=== PATIENT | female | born 1980 | race Caucasian/White ===

== ENCOUNTER 2016-12-27 00:10 | Inpatient (IN) | payer OTHER ==
[2016-12-27 00:28] VITALS: BP 138/94
[2016-12-27] MEDS: HYDROmorphone 1 mg/mL 1mL Syr IVP PRN ×3 (01:16→19:55)
[2016-12-27] MEDS ORDERED: Piperacillin Sodium/Tazobact 3.375 gm Vial IV ONE (01:29)
[2016-12-27 05:44] LABS: % BASOPHILS 0.4 % (0.0-2.0); % EOSINOPHILS 0.2 % (0.0-5.0); % MONOCYTES 9.8 % (2.0-10.0); % NEUTROPHILS 76.6 % (40.0-80.0); HEMATOCRIT 37.4 % (35.0-45.0); HEMOGLOBIN 12.9 gm/dL (11.7-15.5); MEAN CELL VOLUME 83.1 fl (81-100); MEAN CORPUSCULAR HEMOGLOBIN 28.6 pg (27.0-31.0); MEAN CORPUSCULAR HGB CONC 34.4 pg (28.0-36.0); MEAN PLATELET VOLUME 9.9 fl; NEUTROPHILE ABSOLUTE 8.6 Th/cmm (1.8-8.0); PLATELET COUNT 201 Th/cmm (150-400); RED CELL DISTRIBUTION WIDTH 14.3 % (11.5-20.0); WHITE BLOOD COUNT 11.2 Th/cmm (4.8-10.8)
[2016-12-27 06:18] LABS: ANION GAP 7.6 (7.0-16.0); BUN - UREA NITROGEN 11 mg/dL (7-25); BUN/CREATININE RATIO 15.7; CALCIUM SERUM 8.7 mg/dL (8.6-10.3); CARBON DIOXIDE 24.7 mEq/L (21.0-31.0); CHLORIDE 103 mEq/L (98-107); CREATININE - SERUM 0.7 mg/dL (0.6-1.2); GLUCOSE 144 mg/dL (70-105); POTASSIUM SERUM 3.3 mEq/L (3.5-5.1); SODIUM SERUM 132 mEq/L (136-145)
--- NOTE | 2016-12-27 10:59 | General Progress Note ---
Subjective - Review of Systems Service Date: 12/27/16 Events since last encounter: had MAURICE in February 2016 for stage 111 endometrial CA and post op radiation lower abdominal pain with fever for [address] scan at [facility] in pelvis US being done no labs available PE tender lower abdomen check tumor markers Objective - Results Result Diagrams: 12/27/16 05:14 12/27/16 05:14 Recent Labs: Laboratory Last Values WBC 11.2 Th/cmm (4.8-10.8) H 12/27/16 05:14 RBC 4.50 Mil/cmm (3.80-5.10) 12/27/16 05:14 Hgb 12.9 gm/dL (11.7-15.5) 12/27/16 05:14 Hct 37.4 % (35.0-45.0) 12/27/16 05:14 MCV 83.1 fl (81-100) 12/27/16 05:14 MCH 28.6 pg (27.0-31.0) 12/27/16 05:14 MCHC Differential 34.4 pg (28.0-36.0) 12/27/16 05:14 RDW 14.3 % (11.5-20.0) 12/27/16 05:14 Plt Count 201 Th/cmm (150-400) 12/27/16 05:14 MPV 9.9 fl 12/27/16 05:14 Neutrophils % 76.6 % (40.0-80.0) 12/27/16 05:14 Lymphocytes % 13.0 % (20.0-50.0) L 12/27/16 05:14 Monocytes % 9.8 % (2.0-10.0) 12/27/16 05:14 Eosinophils % 0.2 % (0.0-5.0) 12/27/16 05:14 Basophils % 0.4 % (0.0-2.0) 12/27/16 05:14 Sodium 132 mEq/L (136-145) L 12/27/16 05:14 Potassium 3.3 mEq/L (3.5-5.1) L 12/27/16 05:14 Chloride 103 mEq/L (98-107) 12/27/16 05:14 Carbon Dioxide 24.7 mEq/L (21.0-31.0) 12/27/16 05:14 Anion Gap 7.6 (7.0-16.0) 12/27/16 05:14 BUN 11 mg/dL (7-25) 12/27/16 05:14 Creatinine 0.7 mg/dL (0.6-1.2) 12/27/16 05:14 Est GFR ( Amer) > 60.0 ml/min (>90) 12/27/16 05:14 Est GFR (Non-Af Amer) > 60.0 ml/min 12/27/16 05:14 BUN/Creatinine Ratio 15.7 12/27/16 05:14 Glucose 144 mg/dL (70-105) H 12/27/16 05:14 POC Glucose 138 MG/DL (70 - 105) H 12/27/16 01:15 Calcium 8.7 mg/dL (8.6-10.3) 12/27/16 05:14 - Physical Exam Vitals and I&O: Vital Signs Temp 98.3 F 12/27/16 08:00 Pulse 106 12/27/16 08:00 Resp 17 12/27/16 08:00 BP 139/72 12/27/16 08:00 Pulse Ox 100 12/27/16 08:00 Intake & Output 12/26/16 12/27/16 12/27/16 18:59 06:59 18:59 Intake Total 380 Balance 380 Weight (lbs) 102.058 kg 102.058 kg Intake: Oral 380 Other: # Voids 0 # Bowel Movements 0 Stool Characteristics Soft Active Medications: Current Medications Acetaminophen (Tylenol) 650 mg PO Q6H PRN PRN Reason: Pain or Temperature above 101 Stop: 02/25/17 00:53 Hydromorphone HCl (Dilaudid) 1 mg IVP Q6HR PRN PRN Reason: Moderate Pain Stop: 02/25/17 00:54 Last Admin: 12/27/16 09:30 Dose: 1 mg Piperacillin Sod/Tazobactam (Sod 3.375 gm/ Sodium Chloride) 50 mls @ 100 mls/ hr IV Q8HR [facility] Stop: 02/25/17 05:59 Last Admin: 12/27/16 06:26 Dose: 100 mls/hr Vancomycin HCl 1 gm/ Sodium (Chloride) 250 mls @ 165 mls/hr IV Q8HR@0100,0900, 1700 [facility] Stop: 02/25/17 08:59 Last Admin: 12/27/16 09:08 Dose: 165 mls/hr Miscellaneous (Vancomycin Iv Per Pharmacy) 1 rita POLO PRN PRN PRN Reason: PROTOCOL Stop: 02/25/17 00:50
[2016-12-27] MEDS ORDERED: Potassium Chloride 20 mEq ER Tab PO SCH (11:45)
--- NOTE | 2016-12-27 13:23 | History & Physical ---
ADMIT DATE: 12/27/2016 CHIEF COMPLAINT: pain. HISTORY OF PRESENT ILLNESS: This is the case of a 36-year-old female who went to [facility] ER secondary to abdominal pain. The patient referred there a few days ago it was started going pelvic abdominal pain, pain increased and she had fever, reason why she went to ER for evaluation and treatment. The patient was evaluated in [facility] ER. CT was done, it was found that the patient has possible abscess in the left side of lower abdomen, reason why the patient was transferred to this hospital to continue treatment. PAST MEDICAL HISTORY: The patient has past medical history of endometrial hyperplasia with atypia, endometrial cancer. The patient has history of anemia and obesity. In May the patient had left abdominal pelvic abscess with drainage and received treatment at the hospital. PAST SURGICAL HISTORY: The patient had hysterectomy secondary to endometrial hyperplasia. SOCIAL HISTORY: The patient lives at home with family members. She denied alcohol or drug use. MEDICATIONS: Reviewed. REVIEW OF SYSTEMS: LUNGS: The patient denies shortness of breath. HEART: The patient denies chest pain. ABDOMEN: The patient referred left lower abdominal pain. EXTREMITIES: Unremarkable. NEUROLOGICAL: Unremarkable. PHYSICAL EXAMINATION: GENERAL: Does reveal regular fairly nourished and developed white female, awake, alert and complaining of abdominal pain. HEENT: Head is normocephalic and atraumatic. Eyes: Pupils reactive to light. Nose: No evidence of nasal obstruction. Ears: No evidence of any discharge. Mouth: Fairly . LUNGS: Bilateral air entry. No wheezing, no crackles. HEART: Regular and rhythmic. ABDOMEN: Soft and tender in the left lower side of abdomen. Bowel sound is present. EXTREMITIES: No edema. NEUROLOGICAL: The patient is awake, alert. Nerves 2-12 grossly intact. IMPRESSION: 1. Pelvic abscess. 2. Obesity. PLAN: 1. The patient will be admitted in the Medical Surgical floor. 2. Continue with home medications. 3. Regular diet. 4. Vancomycin. 5. Zosyn IV. 6. Dilaudid for pain control. 7. Consult with Dr. Huynh, surgeon. 8. Consult with Dr. Palacios, SHANNON. JOB# [id number]
--- NOTE | 2016-12-28 03:51 | Admit Criteria Form ---
Admit Criteria Forms - Admit Criteria Diagnosis: ABDOMINAL PAIN Clinical Indications for Admission to Inpatient Care (Place 'X' for any and all applicable criteria): Admission is indicated for ANY ONE of the following(1)(2)(3)(4)(5): [X]I. Inpatient admission required rather than observation care (Also use Abdominal Pain: Observation Care, as appropriate) because of ANY ONE of the following: [ ]a) Severe pain requiring acute inpatient management [X]b) Identification of etiology/finding that requires inpatient care (eg, aortic dissection, free air) [ ]c) Absent bowel sounds with complete ileus(6) [ ]d) Suspected toxic megacolon [ ]e) Severe electrolyte abnormalities requiring inpatient care [ ]f) High fever or infection requiring inpatient admission as indicated by ANY ONE of following(7)(8): [ ] i) Appropriate outpatient or observational care antimicrobial treatment unavailable, not effective, or not feasible [ ] ii) Documented bacteremia [ ] iii) Temperature > 104.9 degrees F (oral) [ ] iv) T >103.1 F (oral) or < 96.8 F(rectal) that does not respond to all emergency treatment measures [ ]g) Signs of intestinal obstruction [B] [ ]h) Hemodynamic instability [ ]i) IV fluid to replace significant ongoing losses (greater than 3 L/m2 per day) (12)(13) [ ]j) Percutaneous or open drainage (eg, abscess, biliary tract ) procedures [ ]k) Parenteral nutrition regimen that must be implemented on inpatient basis [ ]l) Other condition,treatment or monitoring requiring inpatient admission. [ ]II. Peritoneal signs present [ ]III. Surgery needed that cannot be performed on an ambulatory basis. [ ]IV. Evaluation requires patient to not eat or drink for extended period ( eg, more than 24 hours). [ ]V. Contraindications and/or Inappropriate clinical situations for Observational Care in patients with abdominal pain, when ANY ONE of the following is required: [ ]a) Thorough evaluation is required to prevent catastrophic events due to delays in diagnosing (e.g.Mesenteric ischemia) 1,3 [ ]b) Patient with severe pathology or with chronic symptoms unlikely to improve in the ED stay (3) [ ]. General contraindications and/or Inappropriate clinical situations for Observational Care in patients with abdominal pain, when ANY ONE of the following is required: [ ]a) Prediction of prolongation of LOS based on ANY ONE of the following may be considered as a contraindication for observational care 2, 3, 4, 5, 6, 7, 8, 9, 10, 11 [ ]i) Age > 65 yrs. [ ]ii) Patient arriving by ambulance [ ]iii) Patient with high acuity [ ]iv) Patient requiring vital sign monitoring [ ]v) Patient on IV medication [ ]b) Systolic blood pressures 180mmHg 3,12 [ ]c) Patient with altered mental status including delirium and other alteration of consciousness, (3) [ ]d) Patient whose discharge disposition will be to a [facility] home or rehabilitation home should not be managed in Emergency Department Observation Unit. CMS rule requires 3 days hospital stay before such placement.3,13 [ ]e) Patient with failure to thrive due to broad array of etiologies 3,16,17 [ ]f) Inability to ambulate 3,14 Extended stay beyond goal length of stay may be needed for(2)(3): [ ]a) Persistent abdominal pain with suspected intra-abdominal process [ ]b) Diagnosed condition requiring continued stay (e.g., pancreatitis, complicated diverticulitis) [ ]c) Surgery (e.g., colectomy) The original [employer] content created by [employer] has been revised. The portions of the content which have been revised are identified through the use of italic text or in bold, and [facility] has neither reviewed nor approved the modified material.All other unmodified content is copyright [facility]. Please see references footnoted in the original [facility] edition 2016
[2016-12-28 05:50] LABS: % BASOPHILS 0.4 % (0.0-2.0); % EOSINOPHILS 0.3 % (0.0-5.0); % MONOCYTES 7.7 % (2.0-10.0); % NEUTROPHILS 81.6 % (40.0-80.0); HEMATOCRIT 39.1 % (35.0-45.0); HEMOGLOBIN 13.2 gm/dL (11.7-15.5); MEAN CELL VOLUME 84.9 fl (81-100); MEAN CORPUSCULAR HEMOGLOBIN 28.7 pg (27.0-31.0); MEAN CORPUSCULAR HGB CONC 33.8 pg (28.0-36.0); MEAN PLATELET VOLUME 9.9 fl; NEUTROPHILE ABSOLUTE 9.6 Th/cmm (1.8-8.0); PLATELET COUNT 173 Th/cmm (150-400); RED CELL DISTRIBUTION WIDTH 14.4 % (11.5-20.0); WHITE BLOOD COUNT 11.7 Th/cmm (4.8-10.8)
[2016-12-28 06:03] LABS: ALKALINE PHOSPHATASE 124 U/L (34-104); ANION GAP 9.2 (7.0-16.0); BILIRUBIN,TOTAL 1.7 mg/dL (0.3-1.0); BUN - UREA NITROGEN 7 mg/dL (7-25); CALCIUM SERUM 9.4 mg/dL (8.6-10.3); CARBON DIOXIDE 26.2 mEq/L (21.0-31.0); CHLORIDE 102 mEq/L (98-107); CREATININE - SERUM 0.7 mg/dL (0.6-1.2); GLUCOSE 146 mg/dL (70-105); POTASSIUM SERUM 3.4 mEq/L (3.5-5.1); SGOT 104 U/L (13-39); SGPT/ALT 123 U/L (7-52); SODIUM SERUM 134 mEq/L (136-145)
[2016-12-28] MEDS: HYDROmorphone 1 mg/mL 1mL Syr IVP PRN (07:53)
[2016-12-28] MEDS ORDERED: Potassium Chloride 20 mEq ER Tab PO SCH (09:00)
--- NOTE | 2016-12-28 10:27 | General Progress Note ---
Subjective - Review of Systems Service Date: 12/28/16 Events since last encounter: low grade fever filtering machine tender helper in pelvis abnormal LFT - GB ultrasound ordered Objective - Results Result Diagrams: 12/28/16 05:16 12/28/16 05:16 Recent Labs: Laboratory Last Values WBC 11.7 Th/cmm (4.8-10.8) H 12/28/16 05:16 RBC 4.60 Mil/cmm (3.80-5.10) 12/28/16 05:16 Hgb 13.2 gm/dL (11.7-15.5) 12/28/16 05:16 Hct 39.1 % (35.0-45.0) 12/28/16 05:16 MCV 84.9 fl (81-100) 12/28/16 05:16 MCH 28.7 pg (27.0-31.0) 12/28/16 05:16 MCHC Differential 33.8 pg (28.0-36.0) 12/28/16 05:16 RDW 14.4 % (11.5-20.0) 12/28/16 05:16 Plt Count 173 Th/cmm (150-400) 12/28/16 05:16 MPV 9.9 fl 12/28/16 05:16 Neutrophils % 81.6 % (40.0-80.0) H 12/28/16 05:16 Lymphocytes % 10.0 % (20.0-50.0) L 12/28/16 05:16 Monocytes % 7.7 % (2.0-10.0) 12/28/16 05:16 Eosinophils % 0.3 % (0.0-5.0) 12/28/16 05:16 Basophils % 0.4 % (0.0-2.0) 12/28/16 05:16 Sodium 134 mEq/L (136-145) L 12/28/16 05:16 Potassium 3.4 mEq/L (3.5-5.1) L 12/28/16 05:16 Chloride 102 mEq/L (98-107) 12/28/16 05:16 Carbon Dioxide 26.2 mEq/L (21.0-31.0) 12/28/16 05:16 Anion Gap 9.2 (7.0-16.0) 12/28/16 05:16 BUN 7 mg/dL (7-25) 12/28/16 05:16 Creatinine 0.7 mg/dL (0.6-1.2) 12/28/16 05:16 Est GFR ( Amer) > 60.0 ml/min (>90) 12/28/16 05:16 Est GFR (Non-Af Amer) > 60.0 ml/min 12/28/16 05:16 BUN/Creatinine Ratio 10.0 12/28/16 05:16 Glucose 146 mg/dL (70-105) H 12/28/16 05:16 POC Glucose 138 MG/DL (70 - 105) H 12/27/16 01:15 Calcium 9.4 mg/dL (8.6-10.3) 12/28/16 05:16 Total Bilirubin 1.7 mg/dL (0.3-1.0) H 12/28/16 05:16 AST 104 U/L (13-39) H 12/28/16 05:16 ALT 123 U/L (7-52) H 12/28/16 05:16 Alkaline Phosphatase 124 U/L (34-104) H 12/28/16 05:16 Total Protein 7.6 gm/dL (6.0-8.3) 12/28/16 05:16 Albumin 3.7 gm/dL (3.7-5.3) 12/28/16 05:16 Globulin 3.9 gm/dL 12/28/16 05:16 Albumin/Globulin Ratio 1.0 (1.0-1.8) 12/28/16 05:16 TSH 2.00 uIU/ml (0.34-5.60) 12/28/16 05:16 Vancomycin Trough 10.2 ug/mL (10-20) 12/28/16 08:01 - Physical Exam Vitals and I&O: Vital Signs Temp 100.4 F 12/28/16 08:00 Pulse 95 12/28/16 08:00 Resp 17 12/28/16 08:18 BP 128/76 12/28/16 08:00 Pulse Ox 98 12/28/16 08:00 Intake & Output 12/27/16 12/28/16 12/28/16 18:59 06:59 18:59 Intake Total 930 720 Balance 930 720 Weight (lbs) 102.058 kg 103.51 kg Intake: Intake, IV Amount 550 300 Piperacillin Sodium/ 50 50 Tazobact 3.375 gm In Sodium Chloride 0.9% 50 ml @ 100 mls/hr IV Q8HR [facility] Rx#:[id number] Vancomycin HCl 1 gm In 500 250 Sodium Chloride 0.9% 250 ml @ 165 mls/hr IV Q8HR@ 0100,0900,1700 [facility] Rx#: [id number] Oral 380 420 Other: # Voids 0 # Bowel Movements 0 Stool Characteristics Soft Soft Soft Active Medications: Current Medications Acetaminophen (Tylenol) 650 mg PO Q6H PRN PRN Reason: Pain or Temperature above 101 Stop: 02/25/17 00:53 Last Admin: 12/28/16 09:54 Dose: 650 mg Hydromorphone HCl (Dilaudid) 1 mg IVP Q6HR PRN PRN Reason: Moderate Pain Stop: 02/25/17 00:54 Last Admin: 12/28/16 07:53 Dose: 1 mg Piperacillin Sod/Tazobactam (Sod 3.375 gm/ Sodium Chloride) 50 mls @ 100 mls/ hr IV Q8HR [facility] Stop: 02/25/17 05:59 Last Admin: 12/28/16 05:10 Dose: 100 mls/hr Vancomycin HCl 1 gm/ Sodium (Chloride) 250 mls @ 165 mls/hr IV Q8HR@0100,0900, 1700 [facility] Stop: 02/25/17 08:59 Last Admin: 12/28/16 09:55 Dose: 165 mls/hr Miscellaneous (Vancomycin Iv Per Pharmacy) 1 ea PRN PRN PRN Reason: PROTOCOL Stop: 02/25/17 00:50 Potassium Chloride (Klor-Con) 20 meq PO DAILY [facility] Stop: 02/26/17 08:59 Last Admin: 12/28/16 09:53 Dose: 20 meq
--- NOTE | 2016-12-28 10:43 | Consultation ---
DATE OF CONSULTATION: 12/27/2016 REFERRING PHYSICIAN: Brady Armijo M.D. REASON FOR CONSULTATION: Abdominal pain and fever. Thank you for referring this patient to me. HISTORY OF PRESENT ILLNESS: This is a 36-year-old female complaining of lower abdominal pain with fever for the past 1 week. She presented herself to the ER at [place] where CT scan was done showing possible abscess in the left lower pelvis. PAST MEDICAL HISTORY: Hysterectomy in 02/2016, for stage III endometrial cancer and was treated with postoperative radiation, but no chemotherapy. In April last year, she had a pelvic abscess, which was drained by CT. LABORATORY STUDIES: On this admission, the laboratory showed WBC at 11,200, lymphocytes is 13%. The glucose is 144. Day after admission, the bilirubin was found to be high at 1.7, his AST of 104, ALT of 123, alkaline phosphatase of 134. The patient underwent ultrasound of the pelvis, the result of which is not available. Because of the abnormal liver function tests gallbladder ultrasound will be ordered. PHYSICAL EXAMINATION: The patient is obese. Tenderness in lower abdomen more to the left side. There is minimal tenderness in the right upper quadrant. RECOMMENDATIONS: If found to have a pelvic abscess, will need CT aspiration by Radiology. Gallbladder study will determine further treatment if necessary. [facility]# [id number]
--- NOTE | 2016-12-28 10:45 | Diagnostic Imaging Report ---
Pelvic ultrasound HISTORY: Pain, abscess Transabdominal and transvaginal sonographic technique utilized. The exam is extremely limited due to patient size, body habitus, and pain during the exam. The uterus and ovaries are not seen consistent with patient's surgical history. The urinary bladder exhibits a normal contour. There does appear to be a small amount of free fluid in the lower pelvis. IMPRESSION: 1. Very Limited/suboptimal exam 2. Small amount of free fluid in the lower pelvis. In view of the patient's history, a CT scan would provide additional assessment.
--- NOTE | 2016-12-28 12:45 | General Progress Note ---
Subjective - Review of Systems Service Date: 12/28/16 Subjective: I have abdominal pain Objective - Results Result Diagrams: 12/28/16 05:16 12/28/16 05:16 Recent Labs: Laboratory Last Values WBC 11.7 Th/cmm (4.8-10.8) H 12/28/16 05:16 RBC 4.60 Mil/cmm (3.80-5.10) 12/28/16 05:16 Hgb 13.2 gm/dL (11.7-15.5) 12/28/16 05:16 Hct 39.1 % (35.0-45.0) 12/28/16 05:16 MCV 84.9 fl (81-100) 12/28/16 05:16 MCH 28.7 pg (27.0-31.0) 12/28/16 05:16 MCHC Differential 33.8 pg (28.0-36.0) 12/28/16 05:16 RDW 14.4 % (11.5-20.0) 12/28/16 05:16 Plt Count 173 Th/cmm (150-400) 12/28/16 05:16 MPV 9.9 fl 12/28/16 05:16 Neutrophils % 81.6 % (40.0-80.0) H 12/28/16 05:16 Lymphocytes % 10.0 % (20.0-50.0) L 12/28/16 05:16 Monocytes % 7.7 % (2.0-10.0) 12/28/16 05:16 Eosinophils % 0.3 % (0.0-5.0) 12/28/16 05:16 Basophils % 0.4 % (0.0-2.0) 12/28/16 05:16 Sodium 134 mEq/L (136-145) L 12/28/16 05:16 Potassium 3.4 mEq/L (3.5-5.1) L 12/28/16 05:16 Chloride 102 mEq/L (98-107) 12/28/16 05:16 Carbon Dioxide 26.2 mEq/L (21.0-31.0) 12/28/16 05:16 Anion Gap 9.2 (7.0-16.0) 12/28/16 05:16 BUN 7 mg/dL (7-25) 12/28/16 05:16 Creatinine 0.7 mg/dL (0.6-1.2) 12/28/16 05:16 Est GFR ( Amer) > 60.0 ml/min (>90) 12/28/16 05:16 Est GFR (Non-Af Amer) > 60.0 ml/min 12/28/16 05:16 BUN/Creatinine Ratio 10.0 12/28/16 05:16 Glucose 146 mg/dL (70-105) H 12/28/16 05:16 POC Glucose 138 MG/DL (70 - 105) H 12/27/16 01:15 Calcium 9.4 mg/dL (8.6-10.3) 12/28/16 05:16 Total Bilirubin 1.7 mg/dL (0.3-1.0) H 12/28/16 05:16 AST 104 U/L (13-39) H 12/28/16 05:16 ALT 123 U/L (7-52) H 12/28/16 05:16 Alkaline Phosphatase 124 U/L (34-104) H 12/28/16 05:16 Total Protein 7.6 gm/dL (6.0-8.3) 12/28/16 05:16 Albumin 3.7 gm/dL (3.7-5.3) 12/28/16 05:16 Globulin 3.9 gm/dL 12/28/16 05:16 Albumin/Globulin Ratio 1.0 (1.0-1.8) 12/28/16 05:16 TSH 2.00 uIU/ml (0.34-5.60) 12/28/16 05:16 Vancomycin Trough 10.2 ug/mL (10-20) 12/28/16 08:01 - Physical Exam Vitals and I&O: Vital Signs Temp 100.4 F 12/28/16 08:00 Pulse 95 12/28/16 08:00 Resp 17 12/28/16 08:18 BP 128/76 12/28/16 08:00 Pulse Ox 98 12/28/16 08:00 Intake & Output 12/27/16 12/28/16 12/28/16 18:59 06:59 18:59 Intake Total 930 720 Balance 930 720 Weight (lbs) 102.058 kg 103.51 kg Intake: Intake, IV Amount 550 300 Piperacillin Sodium/ 50 50 Tazobact 3.375 gm In Sodium Chloride 0.9% 50 ml @ 100 mls/hr IV Q8HR [facility] Rx#:[id number] Vancomycin HCl 1 gm In 500 250 Sodium Chloride 0.9% 250 ml @ 165 mls/hr IV Q8HR@ 0100,0900,1700 [facility] Rx#: [id number] Oral 380 [id number] Other: # Voids 0 # Bowel Movements 0 Stool Characteristics Soft Soft Soft Active Medications: Current Medications Acetaminophen (Tylenol) 650 mg PO Q6H PRN PRN Reason: Pain or Temperature above 101 Stop: 02/25/17 00:53 Last Admin: 12/28/16 09:54 Dose: 650 mg Hydromorphone HCl (Dilaudid) 1 mg IVP Q6HR PRN PRN Reason: Moderate Pain Stop: 02/25/17 00:54 Last Admin: 12/28/16 07:53 Dose: 1 mg Piperacillin Sod/Tazobactam (Sod 3.375 gm/ Sodium Chloride) 50 mls @ 100 mls/ hr IV Q8HR [facility] Stop: 02/25/17 05:59 Last Admin: 12/28/16 05:10 Dose: 100 mls/hr Vancomycin HCl 1 gm/ Sodium (Chloride) 250 mls @ 165 mls/hr IV Q8HR@0100,0900, 1700 [facility] Stop: 02/25/17 08:59 Last Admin: 12/28/16 09:55 Dose: 165 mls/hr Miscellaneous (Vancomycin Iv Per Pharmacy) 1 ea [facility] PRN PRN PRN Reason: PROTOCOL Stop: 02/25/17 00:50 Potassium Chloride (Klor-Con) 20 meq PO DAILY [facility] Stop: 02/26/17 08:59 Last Admin: 12/28/16 09:53 Dose: 20 meq General: Alert, Oriented x3, Cooperative, No acute distress HEENT: Atraumatic Neck: Supple Cardiovascular: Regular rate Lungs: Clear to auscultation Abdomen: Bowel sounds, Soft, Tender, Other (Tender in left lower abdomen) Neurological: Normal gait Skin: Other (Warm and dry) Psych/Mental Status: Mental status NL Assessment/Plan - Assessment Assessment: Patient is awake, alert, calm, with low grade fever. Pelvic US non contributory , Liver enzymes high, - Plan Plan: Abdominal and Pelvic CT ordered. On vanco, zosyn and pain control. Already seen by surgery. Waldemar continue to monitor.
[2016-12-28] MEDS ORDERED: IOHEXOL 300MG/ML 100 ML VIAL ONE (13:54)
[2016-12-28] MEDS: metroNIDAZOLE 500mg/NS 100mL 500 MG/100 ML BAG IV SCH (21:18)
--- NOTE | 2016-12-28 21:36 | Consultation ---
DATE OF CONSULTATION: 12/27/2016 PRIMARY CARE PHYSICIAN: Dr. Armijo. REASON FOR CONSULTATION: Pelvic abscess. HISTORY OF PRESENT ILLNESS: This is a 36-year-old female who was admitted to the hospital with 1-week history of fever and pain in the lower abdomen. The patient has history of uterine cancer diagnosed last year, underwent hysterectomy for stage III endometrial cancer. The patient also received radiation, lymph nodes were negative and chemotherapy was not needed; however, for 1 week, the patient started having pelvic pain and fever and she came to Emergency where the patient was evaluated for pelvic abscess, was diagnosed, and Infectious consultation was called for further treatment. She has previous history of pelvic abscess, which was drained without any subsequent antibiotic treatment. FAMILY HISTORY: Also include, negative. SOCIAL HISTORY: Nonsmoker. ALLERGIES: No allergies. REVIEW OF SYSTEMS: A 14-point review of systems negative except above. PHYSICAL EXAMINATION: GENERAL: The patient is well nourished female. VITAL SIGNS: Temperature is 98.9, pulse 101, respirations 18, blood pressure 138/94. HEENT: Mild pallor. No icterus. No plaque. NECK: Supple. No thyromegaly. LUNGS: Breath sounds bilateral. CARDIOVASCULAR: S1, S2. ABDOMEN: Soft. Bowel sounds ____ no tenderness in cervical lymph nodes. Pelvic and lower abdominal tenderness present. CT shows pelvic abscess. LABORATORY DATA: White count is 11,000, hemoglobin 13 g. DIAGNOSIS: Pelvic abscess. OTHER DIAGNOSIS: History of uterine cancer, may need oncology evaluation also. PLAN: The patient is started on vancomycin and Zosyn, surgical evaluation, we will add Flagyl 500 with coverage, rest of the care as ordered in CPOE. Thank you, Dr. Armijo, for this consultation. JOB# [id number]
[2016-12-29] MEDS: HYDROmorphone 1 mg/mL 1mL Syr IVP PRN ×2 (00:28→10:31)
[2016-12-29] MEDS: metroNIDAZOLE 500mg/NS 100mL 500 MG/100 ML BAG IV SCH ×3 (06:05→20:35)
[2016-12-29 08:00] LABS: % BASOPHILS 1.2 % (0.0-2.0); % EOSINOPHILS 0.5 % (0.0-5.0); % LYMPHOCYTES 10.2 % (20.0-50.0); % MONOCYTES 7.4 % (2.0-10.0); % NEUTROPHILS 80.7 % (40.0-80.0); HEMATOCRIT 35.2 % (35.0-45.0); HEMOGLOBIN 11.8 gm/dL (11.7-15.5); MEAN CELL VOLUME 84.6 fl (81-100); MEAN CORPUSCULAR HEMOGLOBIN 28.3 pg (27.0-31.0); MEAN CORPUSCULAR HGB CONC 33.4 pg (28.0-36.0); MEAN PLATELET VOLUME 9.4 fl; NEUTROPHILE ABSOLUTE 7.6 Th/cmm (1.8-8.0); PLATELET COUNT 202 Th/cmm (150-400); RED BLOOD COUNT 4.16 Mil/cmm (3.80-5.10); RED CELL DISTRIBUTION WIDTH 13.8 % (11.5-20.0)
[2016-12-29 08:03] LABS: WHITE BLOOD COUNT 9.3 Th/cmm (4.8-10.8)
--- NOTE | 2016-12-29 08:52 | General Progress Note ---
Subjective - Review of Systems Service Date: 12/29/16 Subjective: I am better. Objective - Results Result Diagrams: 12/29/16 08:00 12/28/16 05:16 Recent Labs: Laboratory Last Values WBC 9.3 Th/cmm (4.8-10.8) D 12/29/16 08:00 RBC 4.16 Mil/cmm (3.80-5.10) 12/29/16 08:00 Hgb 11.8 gm/dL (11.7-15.5) 12/29/16 08:00 Hct 35.2 % (35.0-45.0) 12/29/16 08:00 MCV 84.6 fl (81-100) 12/29/16 08:00 MCH 28.3 pg (27.0-31.0) 12/29/16 08:00 MCHC Differential 33.4 pg (28.0-36.0) 12/29/16 08:00 RDW 13.8 % (11.5-20.0) 12/29/16 08:00 Plt Count 202 Th/cmm (150-400) 12/29/16 08:00 MPV 9.4 fl 12/29/16 08:00 Neutrophils % 80.7 % (40.0-80.0) H 12/29/16 08:00 Lymphocytes % 10.2 % (20.0-50.0) L 12/29/16 08:00 Monocytes % 7.4 % (2.0-10.0) 12/29/16 08:00 Eosinophils % 0.5 % (0.0-5.0) 12/29/16 08:00 Basophils % 1.2 % (0.0-2.0) 12/29/16 08:00 Sodium 134 mEq/L (136-145) L 12/28/16 05:16 Potassium 3.4 mEq/L (3.5-5.1) L 12/28/16 05:16 Chloride 102 mEq/L (98-107) 12/28/16 05:16 Carbon Dioxide 26.2 mEq/L (21.0-31.0) 12/28/16 05:16 Anion Gap 9.2 (7.0-16.0) 12/28/16 05:16 BUN 7 mg/dL (7-25) 12/28/16 05:16 Creatinine 0.7 mg/dL (0.6-1.2) 12/28/16 05:16 Est GFR ( Amer) > 60.0 ml/min (>90) 12/28/16 05:16 Est GFR (Non-Af Amer) > 60.0 ml/min 12/28/16 05:16 BUN/Creatinine Ratio 10.0 12/28/16 05:16 Glucose 146 mg/dL (70-105) H 12/28/16 05:16 POC Glucose 138 MG/DL (70 - 105) H 12/27/16 01:15 Calcium 9.4 mg/dL (8.6-10.3) 12/28/16 05:16 Total Bilirubin 1.7 mg/dL (0.3-1.0) H 12/28/16 05:16 AST 104 U/L (13-39) H 12/28/16 05:16 ALT 123 U/L (7-52) H 12/28/16 05:16 Alkaline Phosphatase 124 U/L (34-104) H 12/28/16 05:16 Total Protein 7.6 gm/dL (6.0-8.3) 12/28/16 05:16 Albumin 3.7 gm/dL (3.7-5.3) 12/28/16 05:16 Globulin 3.9 gm/dL 12/28/16 05:16 Albumin/Globulin Ratio 1.0 (1.0-1.8) 12/28/16 05:16 TSH 2.00 uIU/ml (0.34-5.60) 12/28/16 05:16 Vancomycin Trough 10.2 ug/mL (10-20) 12/28/16 08:01 - Physical Exam Vitals and I&O: Vital Signs Temp 100.6 F 12/29/16 07:50 Pulse 99 12/29/16 07:50 Resp 17 12/29/16 08:00 BP 131/76 12/29/16 07:50 Pulse Ox 96 12/29/16 07:50 Intake & Output 12/28/16 12/29/16 12/29/16 18:59 06:59 18:59 Intake Total 950 450 Balance 950 450 Weight (lbs) 103.419 kg 103.691 kg Intake: Intake, IV Amount 550 450 Piperacillin Sodium/ 50 100 Tazobact 3.375 gm In Sodium Chloride 0.9% 50 ml @ 100 mls/hr IV Q8HR [facility] Rx#:[id number] Vancomycin HCl 1 gm In 500 250 Sodium Chloride 0.9% 250 ml @ 165 mls/hr IV Q8HR@ 0100,0900,1700 [facility] Rx#: [id number] metroNIDAZOLE 500mg/NS 100 100mL 500 mg In 100 ml @ 100 mls/hr IV Q8HR [facility] Rx #:[id number] Oral 400 Other: # Bowel Movements 1 Stool Characteristics Soft Soft Soft Active Medications: Current Medications Acetaminophen (Tylenol) 650 mg PO Q6H PRN PRN Reason: Pain or Temperature above 101 Stop: 02/25/17 00:53 Last Admin: 12/28/16 18:58 Dose: 650 mg Hydromorphone HCl (Dilaudid) 1 mg IVP Q6HR PRN PRN Reason: Moderate Pain Stop: 02/25/17 00:54 Last Admin: 12/29/16 00:28 Dose: 1 mg Piperacillin Sod/Tazobactam (Sod 3.375 gm/ Sodium Chloride) 50 mls @ 100 mls/ hr IV Q8HR [facility] Stop: 02/25/17 05:59 Last Infusion: 12/29/16 06:10 Dose: Infused Vancomycin HCl 1 gm/ Sodium (Chloride) 250 mls @ 165 mls/hr IV Q8HR@0100,0900, 1700 [facility] Stop: 02/25/17 08:59 Last Infusion: 12/29/16 02:00 Dose: Infused Metronidazole (Flagyl) 500 mg in 100 mls @ 100 mls/hr IV Q8HR [facility] Stop: 02/26/17 20:59 Last Admin: 12/29/16 06:05 Dose: 100 mls/hr Miscellaneous (Vancomycin Iv Per Pharmacy) 1 ea [facility] PRN PRN PRN Reason: PROTOCOL Stop: 02/25/17 00:50 Potassium Chloride (Klor-Con) 20 meq PO DAILY [facility] Stop: 02/26/17 08:59 Last Admin: 12/28/16 09:53 Dose: 20 meq General: Alert, Oriented x3, Cooperative, No acute distress HEENT: Atraumatic Neck: Supple Cardiovascular: Regular rate Lungs: Clear to auscultation Abdomen: Bowel sounds, Soft, Tender Extremities: Other (No edema) Neurological: Normal gait Skin: Other (Warm and dry) Psych/Mental Status: Mental status NL Assessment/Plan - Assessment Assessment: Patient is awake, alert, calm, with low grade fever, WBC normal. Pelvic CT done yesterday, awaiting results. - Plan Plan: Abdominal and Pelvic CT done. On vanco, zosyn, and metronidazole, and pain control. Already seen by surgery and ID. Waldemar continue to monitor.
[2016-12-29 09:00] LABS: ALB/GLOB RATIO 0.9 (1.0-1.8); ALKALINE PHOSPHATASE 140 U/L (34-104); ANION GAP 10.6 (7.0-16.0); BUN - UREA NITROGEN 5 mg/dL (7-25); BUN/CREATININE RATIO 7.1; CALCIUM SERUM 9.4 mg/dL (8.6-10.3); CARBON DIOXIDE 24.8 mEq/L (21.0-31.0); CHLORIDE 100 mEq/L (98-107); CREATININE - SERUM 0.7 mg/dL (0.6-1.2); GLUCOSE 124 mg/dL (70-105); POTASSIUM SERUM 3.4 mEq/L (3.5-5.1); SGOT 56 U/L (13-39); SGPT/ALT 110 U/L (7-52); SODIUM SERUM 132 mEq/L (136-145)
--- NOTE | 2016-12-29 10:52 | Diagnostic Imaging Report ---
CT scan of the abdomen and pelvis with intravenous contrast History: Pain Total DLP equals 763 CTDI equals 14.2 Following administration of intravenous contrast, axial sections were obtained from the xiphoid process down to the pubic symphysis. Exam of the liver demonstrates a normal size and contour. No focal lesions are seen. The spleen appears normal. No abnormalities are seen in the region of the pancreas. The kidneys appear normal bilaterally. No focal lesions or hydronephrosis. Intraluminal calcification seen in the gallbladder consistent with cholelithiasis. The exam of the pelvis demonstrates haziness about the perirectal fat. Significance should be correlated clinically. No discrete abnormal masses or abnormal fluid collections are seen. Multiple surgical clips noted within the pelvis. IMPRESSION: 1. Intraluminal calcification seen in the gallbladder consistent with cholelithiasis 2. Surgical changes within the pelvis 3. Haziness of the perirectal fat. Significance should be correlated clinically. 4. No discrete abnormal masses or abnormal fluid collections.
--- NOTE | 2016-12-29 10:53 | Diagnostic Imaging Report ---
Abdominal ultrasound HISTORY: Pain Exam limited due to patient's size and body habitus. The liver demonstrates suggestion of an increase in parenchymal echogenicity. The findings may be associated with fatty infiltration and should be correlated with liver function test. The exam of the gallbladder demonstrates intraluminal echogenic densities suggesting cholelithiasis. No biliary dilatation. The pancreas cannot be seen due to bowel gas. No focal renal lesions. No hydronephrosis. No other definite retroperitoneal or intra-abdominal abnormalities. IMPRESSION: 1. Limited exam due to bowel gas 2. Intraluminal echogenic densities within the gallbladder. Despite the absence of acoustic shadowing. Findings suggest changes of cholelithiasis. 3. Findings suggesting hepatic fatty infiltration. The changes should be correlated with liver function tests.
--- NOTE | 2016-12-29 12:12 | General Progress Note ---
Subjective - Review of Systems Service Date: 12/29/16 Events since last encounter: US shows GB stones - denies typical pain of stones LFT elevated will order MRCP still claims pelvic pain, CT and US of pelvis minimal findigs Objective - Results Result Diagrams: 12/29/16 08:00 12/29/16 08:00 Recent Labs: Laboratory Last Values WBC 9.3 Th/cmm (4.8-10.8) D 12/29/16 08:00 RBC 4.16 Mil/cmm (3.80-5.10) 12/29/16 08:00 Hgb 11.8 gm/dL (11.7-15.5) 12/29/16 08:00 Hct 35.2 % (35.0-45.0) 12/29/16 08:00 MCV 84.6 fl (81-100) 12/29/16 08:00 MCH 28.3 pg (27.0-31.0) 12/29/16 08:00 MCHC Differential 33.4 pg (28.0-36.0) 12/29/16 08:00 RDW 13.8 % (11.5-20.0) 12/29/16 08:00 Plt Count 202 Th/cmm (150-400) 12/29/16 08:00 MPV 9.4 fl 12/29/16 08:00 Neutrophils % 80.7 % (40.0-80.0) H 12/29/16 08:00 Lymphocytes % 10.2 % (20.0-50.0) L 12/29/16 08:00 Monocytes % 7.4 % (2.0-10.0) 12/29/16 08:00 Eosinophils % 0.5 % (0.0-5.0) 12/29/16 08:00 Basophils % 1.2 % (0.0-2.0) 12/29/16 08:00 Sodium 132 mEq/L (136-145) L 12/29/16 08:00 Potassium 3.4 mEq/L (3.5-5.1) L 12/29/16 08:00 Chloride 100 mEq/L (98-107) 12/29/16 08:00 Carbon Dioxide 24.8 mEq/L (21.0-31.0) 12/29/16 08:00 Anion Gap 10.6 (7.0-16.0) 12/29/16 08:00 BUN 5 mg/dL (7-25) L 12/29/16 08:00 Creatinine 0.7 mg/dL (0.6-1.2) 12/29/16 08:00 Est GFR ( Amer) > 60.0 ml/min (>90) 12/29/16 08:00 Est GFR (Non-Af Amer) > 60.0 ml/min 12/29/16 08:00 BUN/Creatinine Ratio 7.1 12/29/16 08:00 Glucose 124 mg/dL (70-105) H 12/29/16 08:00 POC Glucose 138 MG/DL (70 - 105) H 12/27/16 01:15 Calcium 9.4 mg/dL (8.6-10.3) 12/29/16 08:00 Total Bilirubin 1.0 mg/dL (0.3-1.0) 12/29/16 08:00 AST 56 U/L (13-39) H 12/29/16 08:00 ALT 110 U/L (7-52) H 12/29/16 08:00 Alkaline Phosphatase 140 U/L (34-104) H 12/29/16 08:00 Total Protein 7.3 gm/dL (6.0-8.3) 12/29/16 08:00 Albumin 3.4 gm/dL (3.7-5.3) L 12/29/16 08:00 Globulin 3.9 gm/dL 12/29/16 08:00 Albumin/Globulin Ratio 0.9 (1.0-1.8) L 12/29/16 08:00 TSH 2.00 uIU/ml (0.34-5.60) 12/28/16 05:16 Vancomycin Trough 11.3 ug/mL (10-20) 12/29/16 08:00 - Physical Exam Vitals and I&O: Vital Signs Temp 99.2 F 12/29/16 12:05 Pulse 90 12/29/16 12:05 Resp 18 12/29/16 12:05 BP 124/75 12/29/16 12:05 Pulse Ox 96 12/29/16 12:05 Intake & Output 12/28/16 12/29/16 12/29/16 18:59 06:59 18:59 Intake Total 950 450 100 Balance 950 450 100 Weight (lbs) 103.419 kg 103.691 kg Intake: Intake, IV Amount 550 450 100 Piperacillin Sodium/ 50 100 Tazobact 3.375 gm In Sodium Chloride 0.9% 50 ml @ 100 mls/hr IV Q8HR [facility] Rx#:[id number] Vancomycin HCl 1 gm In 500 250 Sodium Chloride 0.9% 250 ml @ 165 mls/hr IV Q8HR@ 0100,0900,1700 [facility] Rx#: [id number] metroNIDAZOLE 500mg/NS 100 100 100mL 500 mg In 100 ml @ 100 mls/hr IV Q8HR [facility] Rx #:[id number] Oral 400 Other: # Bowel Movements 1 Stool Characteristics Soft Soft Soft Active Medications: Current Medications Acetaminophen (Tylenol) 650 mg PO Q6H PRN PRN Reason: Pain or Temperature above 101 Stop: 02/25/17 00:53 Last Admin: 12/28/16 18:58 Dose: 650 mg Hydromorphone HCl (Dilaudid) 1 mg IVP Q6HR PRN PRN Reason: Moderate Pain Stop: 02/25/17 00:54 Last Admin: 12/29/16 10:31 Dose: 1 mg Piperacillin Sod/Tazobactam (Sod 3.375 gm/ Sodium Chloride) 50 mls @ 100 mls/ hr IV Q8HR [facility] Stop: 02/25/17 05:59 Last Infusion: 12/29/16 06:10 Dose: Infused Vancomycin HCl 1 gm/ Sodium (Chloride) 250 mls @ 165 mls/hr IV Q8HR@0100,0900, 1700 [facility] Stop: 02/25/17 08:59 Last Admin: 12/29/16 09:50 Dose: 165 mls/hr Metronidazole (Flagyl) 500 mg in 100 mls @ 100 mls/hr IV Q8HR [facility] Stop: 02/26/17 20:59 Last Infusion: 12/29/16 10:30 Dose: Infused Miscellaneous (Vancomycin Iv Per Pharmacy) 1 ea [facility] PRN PRN PRN Reason: PROTOCOL Stop: 02/25/17 00:50 Potassium Chloride (Klor-Con) 20 meq PO DAILY [facility] Stop: 02/26/17 08:59 Last Admin: 12/28/16 09:53 Dose: 20 meq
[2016-12-29] MEDS: Potassium Chloride 20 mEq ER Tab PO SCH (14:27)
[2016-12-30] MEDS: HYDROmorphone 1 mg/mL 1mL Syr IVP PRN (00:14)
[2016-12-30 03:12] LABS: CARCINOEMBRYONIC ANTIGEN 0.8 ng/mL (0.0-4.7)
[2016-12-30] MEDS: metroNIDAZOLE 500mg/NS 100mL 500 MG/100 ML BAG IV SCH (05:06)
[2016-12-30] MEDS: Potassium Chloride 20 mEq ER Tab PO SCH (08:15)
--- NOTE | 2016-12-30 10:03 | General Progress Note ---
Subjective - Review of Systems Service Date: 12/30/16 Events since last encounter: MRCP result awaited Objective - Results Result Diagrams: 12/29/16 08:00 12/29/16 08:00 Recent Labs: Laboratory Last Values WBC 9.3 Th/cmm (4.8-10.8) D 12/29/16 08:00 RBC 4.16 Mil/cmm (3.80-5.10) 12/29/16 08:00 Hgb 11.8 gm/dL (11.7-15.5) 12/29/16 08:00 Hct 35.2 % (35.0-45.0) 12/29/16 08:00 MCV 84.6 fl (81-100) 12/29/16 08:00 MCH 28.3 pg (27.0-31.0) 12/29/16 08:00 MCHC Differential 33.4 pg (28.0-36.0) 12/29/16 08:00 RDW 13.8 % (11.5-20.0) 12/29/16 08:00 Plt Count 202 Th/cmm (150-400) 12/29/16 08:00 MPV 9.4 fl 12/29/16 08:00 Neutrophils % 80.7 % (40.0-80.0) H 12/29/16 08:00 Lymphocytes % 10.2 % (20.0-50.0) L 12/29/16 08:00 Monocytes % 7.4 % (2.0-10.0) 12/29/16 08:00 Eosinophils % 0.5 % (0.0-5.0) 12/29/16 08:00 Basophils % 1.2 % (0.0-2.0) 12/29/16 08:00 Sodium 132 mEq/L (136-145) L 12/29/16 08:00 Potassium 3.4 mEq/L (3.5-5.1) L 12/29/16 08:00 Chloride 100 mEq/L (98-107) 12/29/16 08:00 Carbon Dioxide 24.8 mEq/L (21.0-31.0) 12/29/16 08:00 Anion Gap 10.6 (7.0-16.0) 12/29/16 08:00 BUN 5 mg/dL (7-25) L 12/29/16 08:00 Creatinine 0.7 mg/dL (0.6-1.2) 12/29/16 08:00 Est GFR ( Amer) > 60.0 ml/min (>90) 12/29/16 08:00 Est GFR (Non-Af Amer) > 60.0 ml/min 12/29/16 08:00 BUN/Creatinine Ratio 7.1 12/29/16 08:00 Glucose 124 mg/dL (70-105) H 12/29/16 08:00 POC Glucose 138 MG/DL (70 - 105) H 12/27/16 01:15 Calcium 9.4 mg/dL (8.6-10.3) 12/29/16 08:00 Total Bilirubin 1.0 mg/dL (0.3-1.0) 12/29/16 08:00 AST 56 U/L (13-39) H 12/29/16 08:00 ALT 110 U/L (7-52) H 12/29/16 08:00 Alkaline Phosphatase 140 U/L (34-104) H 12/29/16 08:00 Total Protein 7.3 gm/dL (6.0-8.3) 12/29/16 08:00 Albumin 3.4 gm/dL (3.7-5.3) L 12/29/16 08:00 Globulin 3.9 gm/dL 12/29/16 08:00 Albumin/Globulin Ratio 0.9 (1.0-1.8) L 12/29/16 08:00 Carcinoembryonic Ag 0.8 ng/mL (0.0-4.7) 12/27/16 11:09 CA 125 Antigen 5.0 U/mL (0.0-38.1) 12/27/16 11:09 TSH 2.00 uIU/ml (0.34-5.60) 12/28/16 05:16 Vancomycin Trough 11.3 ug/mL (10-20) 12/29/16 08:00 - Physical Exam Vitals and I&O: Vital Signs Temp 98.8 F 12/30/16 08:00 Pulse 79 12/30/16 08:00 Resp 16 12/30/16 09:21 BP 119/71 12/30/16 08:00 Pulse Ox 96 12/30/16 08:00 Intake & Output 12/29/16 12/30/16 12/30/16 18:59 06:59 18:59 Intake Total 750 810 Balance 750 810 Weight (lbs) 104.644 kg Intake: Intake, IV Amount 750 400 Piperacillin Sodium/ 50 50 Tazobact 3.375 gm In Sodium Chloride 0.9% 50 ml @ 100 mls/hr IV Q8HR [facility] Rx#:[id number] Vancomycin HCl 1 gm In 500 250 Sodium Chloride 0.9% 250 ml @ 165 mls/hr IV Q8HR@ 0100,0900,1700 [facility] Rx#: [id number] metroNIDAZOLE 500mg/NS 200 100 100mL 500 mg In 100 ml @ 100 mls/hr IV Q8HR [facility] Rx #:[id number] Oral 410 Other: Stool Characteristics Soft Soft Soft Active Medications: Current Medications Acetaminophen (Tylenol) 650 mg PO Q6H PRN PRN Reason: Pain or Temperature above 101 Stop: 02/25/17 00:53 Last Admin: 12/28/16 18:58 Dose: 650 mg Hydromorphone HCl (Dilaudid) 1 mg IVP Q6HR PRN PRN Reason: Moderate Pain Stop: 02/25/17 00:54 Last Admin: 12/30/16 00:14 Dose: 1 mg Piperacillin Sod/Tazobactam (Sod 3.375 gm/ Sodium Chloride) 50 mls @ 100 mls/ hr IV Q8HR [facility] Stop: 02/25/17 05:59 Last Admin: 12/30/16 05:53 Dose: 100 mls/hr Vancomycin HCl 1 gm/ Sodium (Chloride) 250 mls @ 165 mls/hr IV Q8HR@0100,0900, 1700 [facility] Stop: 02/25/17 08:59 Last Admin: 12/30/16 08:16 Dose: 165 mls/hr Metronidazole (Flagyl) 500 mg in 100 mls @ 100 mls/hr IV Q8HR [facility] Stop: 02/26/17 20:59 Last Admin: 12/30/16 05:06 Dose: 100 mls/hr Miscellaneous (Vancomycin Iv Per Pharmacy) 1 ea [facility] PRN PRN PRN Reason: PROTOCOL Stop: 02/25/17 00:50 Potassium Chloride (Klor-Con) 20 meq PO DAILY [facility] Stop: 02/27/17 12:59 Last Admin: 12/30/16 08:15 Dose: 20 meq
--- NOTE | 2017-01-29 14:04 | Discharge Summary ---
General Discharge Summary - Discharge Summary Date of Admission: 12/27/16 Admitting Diagnosis: Pelvic abcess Discharge Date: 12/30/16 Discharge Diagnosis: Pelvic abcess, Obesity Laboratory Findings: Laboratory Tests 12/27/16 12/27/16 12/27/16 01:15 05:14 05:14 WBC 11.2 H RBC 4.50 Hgb 12.9 Hct 37.4 MCV 83.1 MCH 28.6 MCHC Differential 34.4 RDW 14.3 Plt Count 201 MPV 9.9 Neutrophils % 76.6 Lymphocytes % 13.0 L Monocytes % 9.8 Eosinophils % 0.2 Basophils % 0.4 Sodium 132 L Potassium 3.3 L Chloride 103 Carbon Dioxide 24.7 Anion Gap 7.6 BUN 11 Creatinine 0.7 Est GFR ( Amer) > 60.0 Est GFR (Non-Af Amer) > 60.0 BUN/Creatinine Ratio 15.7 Glucose 144 H POC Glucose 138 H Calcium 8.7 Total Bilirubin AST ALT Alkaline Phosphatase Total Protein Albumin Globulin Albumin/Globulin Ratio Carcinoembryonic Ag CA 125 Antigen TSH Vancomycin Trough 12/27/16 12/28/16 12/28/16 11:09 05:16 05:16 WBC 11.7 H RBC 4.60 Hgb 13.2 Hct 39.1 MCV 84.9 MCH 28.7 MCHC Differential 33.8 RDW 14.4 Plt Count 173 MPV 9.9 Neutrophils % 81.6 H Lymphocytes % 10.0 L Monocytes % 7.7 Eosinophils % 0.3 Basophils % 0.4 Sodium 134 L Potassium 3.4 L Chloride 102 Carbon Dioxide 26.2 Anion Gap 9.2 BUN 7 Creatinine 0.7 Est GFR ( Amer) > 60.0 Est GFR (Non-Af Amer) > 60.0 BUN/Creatinine Ratio 10.0 Glucose 146 H POC Glucose Calcium 9.4 Total Bilirubin 1.7 H AST 104 H ALT 123 H Alkaline Phosphatase 124 H Total Protein 7.6 Albumin 3.7 Globulin 3.9 Albumin/Globulin Ratio 1.0 Carcinoembryonic Ag 0.8 CA 125 Antigen 5.0 TSH Vancomycin Trough 12/28/16 12/28/16 12/29/16 05:16 08:01 08:00 WBC 9.3 D RBC 4.16 Hgb 11.8 Hct 35.2 MCV 84.6 MCH 28.3 MCHC Differential 33.4 RDW 13.8 Plt Count 202 MPV 9.4 Neutrophils % 80.7 H Lymphocytes % 10.2 L Monocytes % 7.4 Eosinophils % 0.5 Basophils % 1.2 Sodium Potassium Chloride Carbon Dioxide Anion Gap BUN Creatinine Est GFR ( Amer) Est GFR (Non-Af Amer) BUN/Creatinine Ratio Glucose POC Glucose Calcium Total Bilirubin AST ALT Alkaline Phosphatase Total Protein Albumin Globulin Albumin/Globulin Ratio Carcinoembryonic Ag CA 125 Antigen TSH 2.00 Vancomycin Trough 10.2 12/29/16 12/29/16 08:00 08:00 WBC RBC Hgb Hct MCV MCH MCHC Differential RDW Plt Count MPV Neutrophils % Lymphocytes % Monocytes % Eosinophils % Basophils % Sodium 132 L Potassium 3.4 L Chloride 100 Carbon Dioxide 24.8 Anion Gap 10.6 BUN 5 L Creatinine 0.7 Est GFR ( Amer) > 60.0 Est GFR (Non-Af Amer) > 60.0 BUN/Creatinine Ratio 7.1 Glucose 124 H POC Glucose Calcium 9.4 Total Bilirubin 1.0 AST 56 H ALT 110 H Alkaline Phosphatase 140 H Total Protein 7.3 Albumin 3.4 L Globulin 3.9 Albumin/Globulin Ratio 0.9 L Carcinoembryonic Ag CA 125 Antigen TSH Vancomycin Trough 11.3 Hospital Course: Patient was transfered fron [facility] to0 continue treatment for pelvic abcess. She was started in IV NS, Vancomicyn, Zosyn regular diet, Dilaudid for pain control. Consult with Surgeon and ID were done and recommendation were follow. With this treatment and after 4 days in the hospital it was considred that patient received the maximun benefit of hospitalization and was discharge home with PO antibiotics. Condition at Discharge: Stable Disposition: PT DISCHARGED HOME Home Medications: Home Medication Medication Instructions Recorded Type Metronidazole 500 mg PO TID #30 tablet 12/30/16 Rx Sulfamethoxazole/Trimethoprim 1 each PO BID #20 tablet 12/30/16 Rx [Bactrim Ds Tablet] Prescriptions: Metronidazole 500 mg PO TID #30 tablet Sulfamethoxazole/Trimethoprim [Bactrim Ds Tablet] 1 each PO BID #20 tablet Discharge Diet: Regular Consults and Follow-Up: NO,PCP PER PATIENT [Other] not on staff,PCP is [Primary Care Provider] - Consulting Speciality: Other (PCP) Instructions: Abscess, Hysterectomy Information, [id number]
== END 2016-12-30 14:30 | disposition home or self-care (01) | DRG 720 ==
LOC: MSI 00:10
PROVIDERS: ADMIT General Practice; ATTEND General Practice
DX: A41.9 Sepsis, unspecified organism (principal); E87.1 Hypo-osmolality and hyponatremia; N73.9 Female pelvic inflammatory disease, unspecified; E66.9 Obesity, unspecified; E87.6 Hypokalemia; Z85.42 Personal history of malignant neoplasm of other parts of uterus; Z68.41 Body mass index [BMI] 40.0-44.9, adult; Z90.710 Acquired absence of both cervix and uterus; Z92.3 Personal history of irradiation
CPT/HCPCS: 36415-UA; 76700-TC; 76856-TC; 80048-TC; 80053-TC; 80202-TC; 82378-90; 82948-90; 84443-TC; 85025-TC; 86304-90; 90799; J1170; J2543; J3370; Q9967; Z7610